=== PATIENT | male | born 1935 | race Caucasian/White ===

== ENCOUNTER 2021-08-27 10:47 | Inpatient (IN) | payer MEDICARE, MEDICAID ==
[~2021-08-27] VITALS: Ht 167.6 cm; Wt 72.6 kg
[2021-08-27 12:56] LABS: HEMATOCRIT. 38.9 % (42.0-52.0); HEMOGLOBIN. 12.7 g/dL (14.0-18.0); MEAN CORPUSCULAR HEMOGLOBIN 27.3 pg (28.0-32.0); MEAN CORPUSCULAR VOLUME 83.5 fL (80.0-94.0); MEAN PLATELET VOLUME 8.3 fl (7.4-10.4); PLATELET 103 x1000/uL (130-400); RED BLOOD CELL COUNT 4.66 mill/uL (4.7-6.1); RED CELL DISTRIBUTION WIDTH 16.2 % (11.6-14.6)
[2021-08-27 12:59] LABS: CHLORIDE 106 mEq/L (98-107)
[2021-08-27 13:29] LABS: PLATELET ESTIMATE SLIGHTLY DECREASED
[2021-08-27] MEDS ORDERED: ASPIRIN 325MG EC TABLET PO ONE (14:15)
[2021-08-27 14:25] LABS: CLARITY URINE CLEAR (CLEAR); COLOR URINE DARK YELLOW (YELLOW); KETONES URINE NEGATIVE (NEGATIVE); LEUKOCYTE ESTERASE URINE NEGATIVE (NEGATIVE); NITRITE URINE POSITIVE (NEGATIVE); OCCULT BLOOD URINE 2+ (NEGATIVE); PROTEIN URINE TRACE (NEGATIVE); SPECIFIC GRAVITY URINE 1.019 (1.005-1.030)
[2021-08-27] MEDS: FUROSEMIDE 40MG TABLET PO SCH (16:43)
[2021-08-27] MEDS: LOSARTAN POTASSIUM 25 MG TABLET PO SCH (16:43)
[2021-08-27] MEDS: CARVEDILOL 3.125 MG TABLET PO SCH (21:15)
[2021-08-28] VITALS (50 sets, daily range): BP systolic 11–154; BP diastolic 43–107
[2021-08-28 05:39] LABS: HEMATOCRIT. 44.9 % (42.0-52.0); HEMOGLOBIN. 14.8 g/dL (14.0-18.0); MEAN CORPUSCULAR HEMOGLOBIN 27.4 pg (28.0-32.0); MEAN PLATELET VOLUME 8.4 fl (7.4-10.4); PLATELET 105 x1000/uL (130-400)
[2021-08-28 05:41] LABS: CHLORIDE 100 mEq/L (98-107)
[2021-08-28] MEDS ORDERED: HYDROCODONE/ACETAMINOPHEN 10/325MG TABLET PO PRN (07:45)
[2021-08-28] MEDS ORDERED: DEXTROSE 50% WATER 50ML SYRINGE IV PRN ×2 (07:45)
[2021-08-28] MEDS ORDERED: ACETAMINOPHEN 325MG TABLET PO PRN (07:45)
[2021-08-28] MEDS ORDERED: MAGNESIUM/ALUMINUM HYDROXIDE/SIMETHICONE 30ML UDC PO PRN (07:45)
[2021-08-28] MEDS ORDERED: CLONIDINE 0.1MG TABLET PO PRN (07:45)
[2021-08-28] MEDS ORDERED: AZITHROMYCIN 500 MG TABLET PO NR (08:00)
[2021-08-28] MEDS ORDERED: IPRATROPIUM BROMIDE (0.02%) 0.5MG/2.5ML NEB HHN SCH (08:00)
[2021-08-28] MEDS ORDERED: CEFTRIAXONE 1 G PREMIX 50 ML IV SCH (08:00)
[2021-08-28] MEDS: FUROSEMIDE 40MG TABLET PO SCH ×2 (08:06→18:06)
[2021-08-28] MEDS ORDERED: NALOXONE HCL 0.4 MG/ML 1ML VIAL IV PRN (08:15)
[2021-08-28] MEDS ORDERED: ENOXAPARIN 40MG/0.4ML SYR SUBCUT SCH (09:00)
[2021-08-28] MEDS: APIXABAN 5 MG TABLET PO SCH ×2 (09:59→18:06)
[2021-08-28] MEDS: ASPIRIN 81MG TABLET PO SCH (09:59)
[2021-08-28] MEDS ORDERED: POTASSIUM CHLORIDE 20MEQ TABLET SR PO NR (10:00)
[2021-08-28] MEDS: DOCUSATE SODIUM 100MG CAPSULE PO PRN ×2 (10:00→18:06)
[2021-08-28] MEDS: LOSARTAN POTASSIUM 25 MG TABLET PO SCH (10:01)
[2021-08-28] MEDS: CARVEDILOL 3.125 MG TABLET PO SCH ×2 (10:01→21:23)
[2021-08-28] MEDS: CEFTRIAXONE 1,000 MG in DEXTROSE 5% WATER 50 ML IV SCH (10:27)
[2021-08-28] MEDS ORDERED: ALBUTEROL 6.7GM HFA INHALER ORI PRN (11:00)
[2021-08-28] MEDS: BLOOD SUGAR DIAGNOSTIC STRIP TEST SCH ×3 (11:30→21:35)
[2021-08-28 11:33] LABS: BG BASE EXCESS -2.4 mmol/L (-2.0-2.0); BG CARBOXYHEMOGLOBIN 1.2 % (0.5-1.5); BG DEOXYHEMOGLOBIN 3.8 % (0.0-5.0); BG FRACTION INSPIRED OXYGEN 21; BG HCO3 ACT 20.4 mmol/L (22.0-26.0); BG METHEMOGLOBIN 0.3 % (0.0-1.5); BG OXYGEN SATURATION 96.1 % (92.0-98.5); BG OXYHEMOGLOBIN 94.7 % (94.0-97.0); BG PCO2 30.7 mmHg (35.0-45.0); BG PH 7.441 (7.350-7.450); BG PO2 81.4 mmHg (75.0-100.0); BG SAMPLE SITE RIGHT RADIAL; BG TOTAL HEMOGLOBIN 15.8 g/dL (12.0-18.0); BG VENT MODE ROOM AIR
[2021-08-28] MEDS: INSULIN LISPRO 100 UNITS/ML SUBCUT SCH ×3 (12:00→21:00)
[2021-08-28 12:43] LABS: PLATELET ESTIMATE SLIGHTLY DECREASED
[2021-08-28 18:36] LABS: INR 1.2; PROTHROMBIN TIME 12.8 sec (9.6-11.0)
[2021-08-29] VITALS (34 sets, daily range): BP systolic 81–156; BP diastolic 50–115
[2021-08-29 05:45] LABS: HEMATOCRIT. 42.5 % (42.0-52.0); MEAN CORPUSCULAR HEMOGLOBIN 27.6 pg (28.0-32.0); MEAN CORPUSCULAR VOLUME 83.5 fL (80.0-94.0); MEAN PLATELET VOLUME 8.8 fl (7.4-10.4); PLATELET 111 x1000/uL (130-400); RED BLOOD CELL COUNT 5.09 mill/uL (4.7-6.1); RED CELL DISTRIBUTION WIDTH 16.3 % (11.6-14.6)
[2021-08-29 05:49] LABS: PHOSPHORUS 4.1 mg/dL (2.5-4.9)
[2021-08-29] MEDS: OMEPRAZOLE 20MG CAPSULE EXTENDED RELEASE PO SCH (06:33)
[2021-08-29] MEDS: BLOOD SUGAR DIAGNOSTIC STRIP TEST SCH ×4 (06:35→20:34)
[2021-08-29] MEDS: INSULIN LISPRO 100 UNITS/ML SUBCUT SCH ×4 (06:40→20:34)
[2021-08-29] MEDS: FUROSEMIDE 40MG TABLET PO SCH ×2 (06:43→17:58)
[2021-08-29 08:42] LABS: PLATELET ESTIMATE SLIGHTLY DECREASED
[2021-08-29] MEDS: ASPIRIN 81MG TABLET PO SCH (08:47)
[2021-08-29] MEDS: AZITHROMYCIN 250 MG TABLET PO SCH (08:47)
[2021-08-29] MEDS: APIXABAN 5 MG TABLET PO SCH ×2 (08:48→17:58)
[2021-08-29] MEDS: LOSARTAN POTASSIUM 25 MG TABLET PO SCH ×2 (08:49→09:22)
[2021-08-29] MEDS: CARVEDILOL 3.125 MG TABLET PO SCH ×3 (08:49→20:22)
[2021-08-29] MEDS ORDERED: POTASSIUM CHLORIDE 20MEQ TABLET SR PO SCH (09:45)
[2021-08-29] MEDS ORDERED: LATA2.5D14 RIGHTEYE (10:00)
[2021-08-29] MEDS: CEFTRIAXONE 1,000 MG in DEXTROSE 5% WATER 50 ML IV SCH (10:52)
[2021-08-29 11:09] LABS: BG BASE EXCESS -1.7 mmol/L (-2.0-2.0); BG CARBOXYHEMOGLOBIN 0.7 % (0.5-1.5); BG DEOXYHEMOGLOBIN 1.1 % (0.0-5.0); BG FRACTION INSPIRED OXYGEN 32; BG HCO3 ACT 21.8 mmol/L (22.0-26.0); BG METHEMOGLOBIN 0.3 % (0.0-1.5); BG OXYGEN SATURATION 98.9 % (92.0-98.5); BG OXYHEMOGLOBIN 97.9 % (94.0-97.0); BG PCO2 33.5 mmHg (35.0-45.0); BG PH 7.431 (7.350-7.450); BG PO2 141.9 mmHg (75.0-100.0); BG SAMPLE SITE LEFT RADIAL; BG TOTAL HEMOGLOBIN 14.9 g/dL (12.0-18.0); BG VENT MODE NASAL CANNULA
[2021-08-29] MEDS ORDERED: DEXAMETHASONE 4MG TABLET PO SCH (11:15)
[2021-08-29] MEDS ORDERED: CHOL200059 PO (13:46)
[2021-08-29] MEDS ORDERED: TAMS-11 PO (13:46)
[2021-08-29] MEDS ORDERED: CRES10 PO (13:46)
[2021-08-29] MEDS ORDERED: SITA100T11 PO (13:46)
[2021-08-29] MEDS ORDERED: LOSA25TA26 MT (13:46)
[2021-08-29] MEDS ORDERED: METO25TA6 MT (13:46)
[2021-08-29] MEDS ORDERED: DAPA5TAB PO (13:46)
[2021-08-29] MEDS ORDERED: APIX5TAB PO (13:46)
[2021-08-29] MEDS ORDERED: DOCU-150 MT (13:46)
[2021-08-29] MEDS ORDERED: DONE5TAB26 PO (13:46)
[2021-08-30] VITALS: BP 123/62
[2021-08-30 04:00] VITALS: BP 122/60
[2021-08-30] MEDS: FUROSEMIDE 40MG TABLET PO SCH ×2 (06:16→18:18)
[2021-08-30] MEDS: OMEPRAZOLE 20MG CAPSULE EXTENDED RELEASE PO SCH (06:19)
[2021-08-30] MEDS: BLOOD SUGAR DIAGNOSTIC STRIP TEST SCH ×4 (06:26→21:40)
[2021-08-30 07:16] LABS: HEMATOCRIT. 42.2 % (42.0-52.0); HEMOGLOBIN. 14.1 g/dL (14.0-18.0); LYMPHOCYTES % 15.2 % (20.0-50.0); MEAN CORPUSCULAR HEMOGLOBIN 27.6 pg (28.0-32.0); MEAN PLATELET VOLUME 8.4 fl (7.4-10.4); MONOCYTES % 11.8 % (2.0-8.0); PLATELET 119 x1000/uL (130-400); RED BLOOD CELL COUNT 5.09 mill/uL (4.7-6.1); RED CELL DISTRIBUTION WIDTH 16.1 % (11.6-14.6)
[2021-08-30 07:21] LABS: PHOSPHORUS 4.9 mg/dL (2.5-4.9)
[2021-08-30 08:00] VITALS: BP 123/78
[2021-08-30] MEDS: INSULIN LISPRO 100 UNITS/ML SUBCUT SCH ×4 (08:02→21:40)
[2021-08-30] MEDS: AZITHROMYCIN 250 MG TABLET PO SCH (08:03)
[2021-08-30] MEDS: DEXAMETHASONE 6MG TABLET PO SCH (08:03)
[2021-08-30] MEDS: ASPIRIN 81MG TABLET PO SCH (08:03)
[2021-08-30] MEDS: APIXABAN 5 MG TABLET PO SCH (08:03)
[2021-08-30] MEDS: LOSARTAN POTASSIUM 25 MG TABLET PO SCH (08:03)
[2021-08-30] MEDS: CARVEDILOL 3.125 MG TABLET PO SCH ×2 (08:04→21:28)
[2021-08-30] MEDS: CEFTRIAXONE 1,000 MG in DEXTROSE 5% WATER 50 ML IV SCH (11:35)
[2021-08-30 12:00] VITALS: BP 100/59
[2021-08-30 16:00] VITALS: BP 131/62
[2021-08-30] MEDS: APIXABAN 2.5 MG TABLET PO SCH (18:18)
[2021-08-30 20:00] VITALS: BP 114/66
[2021-08-31] VITALS: BP 108/77
[2021-08-31 04:00] VITALS: BP 110/70
[2021-08-31 06:39] VITALS: BP 110/70
[2021-08-31] MEDS: FUROSEMIDE 40MG TABLET PO SCH ×2 (06:59→07:02)
[2021-08-31] MEDS: BLOOD SUGAR DIAGNOSTIC STRIP TEST SCH ×2 (07:40→13:08)
[2021-08-31 08:00] VITALS: BP 112/65
[2021-08-31] MEDS: INSULIN LISPRO 100 UNITS/ML SUBCUT SCH ×2 (08:10→13:12)
[2021-08-31] MEDS: LOSARTAN POTASSIUM 25 MG TABLET PO SCH (08:45)
[2021-08-31] MEDS: APIXABAN 2.5 MG TABLET PO SCH (08:45)
[2021-08-31] MEDS: DOCUSATE SODIUM 100MG CAPSULE PO PRN (08:46)
[2021-08-31] MEDS: ASPIRIN 81MG TABLET PO SCH (08:46)
[2021-08-31] MEDS: AZITHROMYCIN 250 MG TABLET PO SCH (08:46)
[2021-08-31] MEDS: DEXAMETHASONE 6MG TABLET PO SCH (08:46)
[2021-08-31] MEDS: OMEPRAZOLE 20MG CAPSULE EXTENDED RELEASE PO SCH (08:48)
[2021-08-31] MEDS: CARVEDILOL 3.125 MG TABLET PO SCH (08:57)
[2021-08-31] MEDS: CEFTRIAXONE 1,000 MG in DEXTROSE 5% WATER 50 ML IV SCH (10:25)
[2021-08-31 10:53] VITALS: BP 114/65
[2021-08-31 12:00] VITALS: BP 114/65
== END 2021-08-31 14:49 | disposition home health service (06) | DRG 177 ==
LOC: ER 10:47 → EDBEDREQ 15:21 → MICUSO 08-28 00:15 → CANBEDREQ 08-28 16:34 → 7WST 08-29 14:30
PROVIDERS: ADMIT Family Medicine Adult Medicine; ATTEND Family Medicine Adult Medicine
DX: U07.1 COVID-19 (principal); E43 Unspecified severe protein-calorie malnutrition; I21.4 Non-ST elevation (NSTEMI) myocardial infarction; I42.9 Cardiomyopathy, unspecified; I48.20 Chronic atrial fibrillation, unspecified; I50.32 Chronic diastolic (congestive) heart failure; N39.0 Urinary tract infection, site not specified; D69.6 Thrombocytopenia, unspecified; E11.51 Type 2 diabetes mellitus with diabetic peripheral angiopathy without gangrene; F03.90 Unspecified dementia, unspecified severity, without behavioral disturbance, psychotic disturbance, mood disturbance, and anxiety; J98.8 Other specified respiratory disorders; I11.0 Hypertensive heart disease with heart failure; I25.10 Atherosclerotic heart disease of native coronary artery without angina pectoris; I44.7 Left bundle-branch block, unspecified; R31.0 Gross hematuria; Z79.01 Long term (current) use of anticoagulants; Z79.82 Long term (current) use of aspirin; Z68.25 Body mass index [BMI] 25.0-25.9, adult
CPT/HCPCS: 36415; 36600; 71045; 80048; 80053; 80061; 81003; 82375; 82805; 82962; 83036; 83735; 83880; 84100; 84484; 85025; 87426; 87804; 93005; 93970; 99291; C1893; J0696; J1815; J7040; J7060; J8540